=== PATIENT | male | born 1955 | race Caucasian/White ===

== ENCOUNTER → 2022-07-11 10:05 | Outpatient (BNVA) | payer MEDICARE, SELFPAY | PROVIDERS: PCP Internal Medicine; Visit Provider Psychiatry & Neurology Neurology | DX: R20.0 Anesthesia of skin (principal); R20.2 Paresthesia of skin | CPT/HCPCS: 99202 ==

== ENCOUNTER 2023-02-06 09:25 | Outpatient (REF) | payer MEDICARE, SELFPAY ==
--- NOTE | 2023-02-06 09:15 | EMG_ITS ---
Please see scanned EMG / Nerve Conduction Report. MTDD
== END 2023-02-06 09:26 | disposition home or self-care (01) ==
LOC: HO.NEURO 09:25
PROVIDERS: PCP Internal Medicine; Visit Provider Psychiatry & Neurology Neurology
DX: R20.0 Anesthesia of skin (principal); R20.2 Paresthesia of skin
CPT/HCPCS: 95885; 95913

== ENCOUNTER 2023-04-11 13:03 | Outpatient (AMB) | payer MEDICARE, SELFPAY ==
--- NOTE | 2023-04-11 13:10 | MHC.OFFVIS ---
Intake Vital Signs 04/11/23 13:11 Height 5 ft 10 in Weight 178 lb BMI 25.5 BP 158/98 H Blood Pressure Location Rt brachial Position Sitting Pulse 73 Pulse Source Pulse Oximeter Pulse Oximetry (%) 98 Oxygen Delivery Method Room Air Intake Visit Reasons: 3M F/U neuropathy-lvm Intake Note: Patient presents for 3 month follow up. Allergies Seasonal Allergies Allergy (Mild, Verified 04/11/23 13:16) Watery Eye Medication List - Last Reconciled 04/11/23 by Darlene Grove MD allopurinol 300 mg PO DAILY doxycycline monohydrate 100 mg PO BID HPI HPI Comments History of Present Illness Details 67y/o male comes for follow up of numbness in bilateral toes and finger tips .His EMG was c/w carpal tunnel R>L He works as skill labor and when he takes the gloves his finger tips turn white and he feels like he has no circulation.He says it started over 10 years ago and has worsened. ABout 37years ago he went on winter hike had vela bite on his right big toe and for past 3 years no sensation on his right big toe. he denies any back pain now.No difficulty with bladder or bowel issues. He had shingles( right thigh) last summer . Before it started he noticed weakness in his right leg . once the shingles responded his weakness is better. [facility] Medical History (Updated 04/11/23 @ 13:29 by Darlene Grove MD) Back pain Carpal tunnel syndrome on both sides Concussion Gout Numbness and tingling in both hands Numbness and tingling of both feet Vertigo Surgical History History of repair of ACL S/P lateral meniscectomy of right knee Family History Father No problems noted. Mother No problems noted. Social History Alcohol intake: current Alcohol intake frequency: holidays/special occasions only Patient Tobacco Use Status: Never used Tobacco Physical Exam Vital Signs: Last Vital Signs Pulse 73 04/11/23 13:11 BP 158/98 H 04/11/23 13:11 Pulse Ox 98 04/11/23 13:11 Oxygen Delivery Method Room Air 04/11/23 13:11 BMI result Body Mass Index 25.5 Const General: cooperative, healthy appearing, comfortable and no acute distress Nutritional Appearance: average body habitus Orientation/consciousness: patient oriented x3 HEENT Head: Yes normal to inspection Eyes Pupils: Equal, round and reactive pupils present Neck Neck: Yes normal visual inspection and Yes full ROM Neuro General: patient oriented x3, tone normal, moves all extremities, Normal light touch and pain sensation and no focal motor deficits Cranial nerves: Yes Equal, round and reactive pupils present, Yes Bilaterally intact EOM present, Yes Nystagmus not present, Yes Normal facial strength present, Yes Midline tongue present, Yes Symmetric palate elevation present, Yes Ability to bilaterally rotate head present and No Ability to bilaterally elevate shoulders present Cognition (Neuro): normal cognition Gait exam (Neuro): Normal gait present Motor exam (neuro): 5/5 motor strength present throughout Coordination: [id number] test normal Extrem Other: mild blanching of toes and distal fingers Assessment & Plan Assessment & Plan (1) Numbness and tingling of both feet: Comment: erika cuevas Code(s): R20.0 - Anesthesia of skin; R20.2 - Paresthesia of skin (2) Carpal tunnel syndrome on both sides: Code(s): G56.03 - Carpal tunnel syndrome, bilateral upper limbs Plan EMG/NCS results reviewed Suggested calcium channel blockers - he wants to use it in winter alone will consider checking EDUARDA suggested wrist brace and hand exercises Exercise.?Exercise can increase circulation, among other health benefits. If you have secondary Raynaud's, talk to your doctor before exercising outdoors in the cold. Control stress.?Learning to recognize and avoid stressful situations might help control the number of attacks. Avoid rapidly changing temperatures.?Try not to move from a hot environment to an air-conditioned room. If possible, avoid frozen-food sections of grocery stores. What to do during an attack Warm your hands, feet or other affected areas. To gently warm your fingers and toes: Get indoors or to a warmer area Wiggle your fingers and toes Place hands under armpits Make wide circles (windmills) with your arms Run warm ? not hot ? water over your fingers and toes Massage your hands and feet If stress triggers an attack, get out of the stressful situation and relax. Practice a stress-relieving technique that works for you, and warm your hands or feet in water to help lessen the attack. Medications: New [wrist splint] As directed 1 ea 0RF carpal tunnel sydnrome G56.03 - Carpal tunnel syndrome, bilateral upper limbs Coding Level of Care Code Est Pt Level 4 (08919) Diagnoses Numbness and tingling of both feet R20.0; R20.2 Carpal tunnel syndrome on both sides G56.03
[2023-04-11 13:11] VITALS: BP 158/98; PULSE 73; O2SAT 98; BMI 25.5
== END 2023-04-11 13:39 | disposition home or self-care (01) ==
PROVIDERS: Visit Provider Psychiatry & Neurology Neurology
DX: R20.0 Anesthesia of skin (principal); R20.2 Paresthesia of skin; G56.03 Carpal tunnel syndrome, bilateral upper limbs
CPT/HCPCS: 99214

== ENCOUNTER → 2023-04-11 13:03 | Outpatient (BNVA) | payer MEDICARE, SELFPAY | PROVIDERS: Visit Provider Psychiatry & Neurology Neurology | DX: G56.03 Carpal tunnel syndrome, bilateral upper limbs (principal); R20.0 Anesthesia of skin; R20.2 Paresthesia of skin | CPT/HCPCS: 99212 ==